=== PATIENT | male | born 1970 | race Asian ===

== ENCOUNTER → 2023-02-19 | Outpatient (CLI) | payer OTHER, SELFPAY ==
--- NOTE | 2023-02-19 17:55 | MRI_ITS ---
INDICATION: Bilateral leg numbness for 4 months EXAMINATION: MRI - MR Spine Lumbar W/O Contrast TECHNIQUE: Multiplanar and multisequence MR images of the lumbar spine. IV Contrast Dosage and Agent: None. COMPARISON: None. FINDINGS: VERTEBRAE: Vertebral body heights are preserved. No acute fracture or pathologic marrow replacement. VERTEBRAL ALIGNMENT: No spondylolisthesis. There is preservation of the normal lumbar lordosis. CORD: Normal position and signal intensity of the conus medullaris. L1/L2: Normal disc height and morphology. Normal spinal canal, lateral recesses and neuroforamina. L2/L3: Normal disc height and morphology. Normal spinal canal, lateral recesses and neuroforamina. L3/L4: Normal disc height and morphology. Normal spinal canal, lateral recesses and neuroforamina. L4/L5: Mild loss of normal disc space height with circumferential annular bulge in combination with posterior elements producing mild central and bilateral foraminal encroachment. L5/S1: Normal disc height and morphology. Normal spinal canal, lateral recesses and neuroforamina. SOFT TISSUES: Unremarkable. MRI/Spine Lumbar (Routine) IMPRESSION: Degenerative disc disease with lumbar stenosis at L4-5. Electronically Signed: Mekhi Fernandez MD at 20:01 EDT ,
== END | disposition home or self-care (01) ==
PROVIDERS: PCP Family Medicine; Referring Provider Orthopaedic Surgery; Visit Provider Orthopaedic Surgery
DX: M48.061 Spinal stenosis, lumbar region without neurogenic claudication (principal)
CPT/HCPCS: 72148

== ENCOUNTER 2024-04-14 21:29 | Emergency (ER) | payer OTHER, SELFPAY ==
[2024-04-14 21:30] VITALS: BP 182/99; PULSE 81; RESP 16; TEMP 36.8; O2SAT 98; BMI 25.0
--- NOTE | 2024-04-14 22:01 | ED.VIS.DYS ---
HPI History of Present Illness Chief Complaint: Asthma Narrative Narrative: 53-year-old male presenting with shortness of breath. Patient states it started yesterday. Patient has a history of asthma. Patient states he was already seen today at [facility] and was given steroids and breathing treatments. He had lab work and imaging performed. He states that he was sent home but he still feels like he is short of breath. He states he does not have chest pain. He has not had fever or chills. No cough. No nausea or vomiting. PE Risk Factors: Negative for Cancer, OCP + Smoking + > 35, Prior DVT or PE, Recent immobilization, Recent surgery or Recent travel [facility] Medical History Asthma Home Medications ?Medication ?Instructions ?Recorded ?Last Taken ?Type cetirizine 10 mg tablet ea PO 02/06/23 Unknown History diclofenac sodium 75 mg ea PO 02/06/23 Unknown History tablet,delayed release famotidine 40 mg tablet ea PO 02/06/23 Unknown History lansoprazole 30 mg capsule,delayed 30 mg PO 02/06/23 Unknown History release doxycycline hyclate 100 mg tablet 100 mg PO BID #13 tabs 04/14/24 Unknown Rx Allergy/AdvReac Type Severity Reaction Status Date / Time No Known Allergies Allergy Verified 04/14/24 21:31 Social History Smoking Status: Never smoker alcohol intake: never ROS ROS ED Constitutional Constitutional ED: Denies chills, fever(s) or sweats Eyes Eyes: Denies blurry vision or change in vision ENT ENT ED: Denies ear pain or sore throat Cardiovascular Cardiovascular: Denies chest pain, palpitations or racing heartbeat Respiratory/Chest Respiratory/Chest: Reports dyspnea; Denies cough or sputum Gastrointestinal Gastrointestinal: Denies abdominal pain, constipation, diarrhea, nausea or vomiting Genitourinary Genitourinary ED: Denies dysuria, hematuria or urinary frequency Musculoskeletal Musculoskeletal: Denies arthralgias, myalgias or neck pain Integumentary Denies abscess, Abrasions or rash Neurologic Neurologic: Denies headache(s), paresthesias or weakness Psychiatric Psychiatric: Denies anxiety, depression, suicidal ideation or suicidal thoughts Endocrine Endocrinology: Denies polydipsia or polyuria EXAM Physical Exam Const Vital Signs: 04/14/24 21:30 04/14/24 21:36 Temperature 98.2 F Temperature Source Temporal Pulse Rate 81 Respiratory Rate 16 Respiratory Effort Normal Blood Pressure 182/99 H Blood Pressure Mean 126 Pulse Ox 98 Oxygen Delivery Method Room Air General Appearance ED: Negative for pallor HEENT Reports normocephalic, head/scalp atraumatic and moist mucous membranes Eyes PERRL and EOMs intact bilaterally Neck no lymphadenopathy and supple Chest Wall inspection of chest normal and palpation of chest normal Resp normal respiratory effort and clear to auscultation bilaterally Auscultation: Negative for rales, rhonchi or wheezes Cardio regular rate and regular rhythm Narrative: Deferred Extremity normal to inspection and no pedal edema General Extremety ED: Negative for edema or tenderness General Extremity: Negative for edema Neuro oriented x3 and CN's II-XII intact bilaterally Sensorium / Orientation: alert Motor Exam: strength 5/5 throughout Psych mental status grossly normal Attitude: No agitated Skin no rashes or lesions noted and no wounds General Skin Exam: Negative for jaundice or pallor MDM MDM MDM Narrative Medical decision making narrative: Patient presenting with shortness of breath. He states he feels like it is asthma. He was already seen at [facility]. On examination his lungs are clear to auscultation bilaterally. Heart regular rate and rhythm without murmur. Temperature 98.2 and O2 sats 98% on room air. Patient requested breathing treatments. I reviewed his workup from [facility] his CBC showed a white count of 8.9, hemoglobin 13.4, platelets 343. Glucose was 225, sodium 139, potassium 4.0, chloride 104, CO2 24, BUN 17, creatinine 1.24. High-sensitivity troponin was 6. Per the ER notes they did not believe he presented with asthma symptoms either because they did not believe he was wheezing. For this reason they did a complete workup including a CTA and cardiac workup which was all normal. Patient was given an albuterol inhaler as it does not seem he has albuterol at home. He does have 2 steroid inhalers with him. He requests an antibiotic so he was started on doxycycline. Return precautions discussed. Impression: 1. Dyspnea Discharge Plan Triage Chief Complaint: Asthma ED Provider: Abdias Peña Dx/Rx/DC Orders Instructions: ED Asthma, Acute (Adult) Prescriptions: New doxycycline hyclate 100 mg tablet 100 mg PO BID Qty: 13 0RF No Action diclofenac sodium 75 mg tablet,delayed release (DR/EC) PO Patient Comments: take 1 tablet by mouth twice a day famotidine 40 mg tablet PO Patient Comments: take 1 tablet by mouth once daily cetirizine 10 mg tablet PO Patient Comments: take 1 tablet by mouth daily lansoprazole 30 mg capsule,delayed release(DR/EC) 30 mg PO Patient Comments: take 1 capsule by mouth twice a day Primary Care Provider: Juarez Mcmullen Referrals: Juarez Mcmullen MD [Primary Care Provider] - Print Language: Palauan Disposition Disposition: Home, Self Care Discharge Date/Time: 04/14/24 23:48
[2024-04-14 22:06] VITALS: PULSE 88; RESP 20
[2024-04-14] MEDS: Ipratropium/Albuterol Sulfate 3 ML AMPUL.NEB INHALATION (22:06)
[2024-04-14] MEDS: Albuterol 2.5 MG/3 ML VIAL.NEB. INHALATION (22:07)
--- NOTE | 2024-04-14 22:25 | CPS ---
x1 Albuterol given to pt. in ER as well
[2024-04-14 23:09] VITALS: O2SAT 95
[2024-04-14] MEDS: Doxycycline 100 MG CAPSULE PO (23:36)
[2024-04-14] MEDS: Albuterol Sulfate 8 gm Inhaler (60 puffs) 2 PUFF INHALATION (23:47)
== END 2024-04-14 23:48 | disposition home or self-care (01) ==
PROVIDERS: Emergency Provider Student in an Organized Health Care Education/Training Program; PCP Family Medicine; Visit Provider Student in an Organized Health Care Education/Training Program
DX: R06.00 Dyspnea, unspecified (principal); J45.909 Unspecified asthma, uncomplicated; Z79.899 Other long term (current) drug therapy
CPT/HCPCS: 94640; 99282

== ENCOUNTER → 2024-06-28 | Outpatient (CLI) | payer OTHER, SELFPAY ==
[2024-06-28 10:34] LABS: PSA,Total - Annual Screen 1.07 ng/mL (0.00-4.00)
== END | disposition home or self-care (01) ==
LOC: LAB 09:17
PROVIDERS: PCP Family Medicine; Referring Provider Urology; Visit Provider Urology
DX: Z12.5 Encounter for screening for malignant neoplasm of prostate (principal)
CPT/HCPCS: 36415; 84153; G0103

== ENCOUNTER 2024-08-13 11:46 | Emergency (ER) | payer OTHER, SELFPAY ==
[2024-08-13 11:46] VITALS: BP 139/91; PULSE 94; RESP 14; TEMP 36.6; O2SAT 95; BMI 22.5
[2024-08-13 12:09] VITALS: O2SAT 93
--- NOTE | 2024-08-13 13:09 | ED.VIS.DYS ---
HPI History of Present Illness Chief Complaint: Shortness of Breath Onset/Context/Timing Onset: Yesterday Context: gradual Timing: Continuous Quality: Positive for Wheezing Worsened by: Nothing Relieved by: Nothing Associated Symptoms cough, clear sputum and white sputum; Negative for rhinorrhea, post nasal drip, ear pain, fever, chest pain, sore throat, chills, sweats, yellow sputum or green sputum Chest Pain: Positive for None Narrative Narrative: Patient presents with shortness of breath that has been getting worse since yesterday. Patient states he has a history of asthma. Patient states that he does not have any asthma medications at home. Patient states his asthma has been getting worse. Patient denies any fevers or chills. Patient admits to a cough. Patient states he is coughing up some clear and white sputum. Patient denies any fevers or chills. Patient denies any chest pain. Patient denies any nausea or vomiting. [facility] Medical History Asthma Home Medications ?Medication ?Instructions ?Recorded ?Last Taken ?Type cetirizine 10 mg tablet ea PO 02/06/23 Unknown History diclofenac sodium 75 mg ea PO 02/06/23 Unknown History tablet,delayed release famotidine 40 mg tablet ea PO 02/06/23 Unknown History lansoprazole 30 mg capsule,delayed 30 mg PO 02/06/23 Unknown History release doxycycline hyclate 100 mg tablet 100 mg PO BID #13 tabs 04/14/24 Unknown Rx albuterol sulfate 90 mcg/actuation 1 - 2 puff inhalation Q4H PRN PRN 08/13/24 Unknown Rx aerosol inhaler (Ventolin HFA) Wheezing ##1 prednisone 20 mg tablet 60 mg (3 x 20 mg) PO DAILY #15 08/13/24 Unknown Rx TABLETS Allergy/AdvReac Type Severity Reaction Status Date / Time No Known Allergies Allergy Verified 08/13/24 11:47 Surgical History no surgical history no surgical history Social History Smoking Status: Never smoker alcohol intake: never ROS ROS ED Constitutional Constitutional ED: Denies chills or fever(s) Eyes Eyes: Denies blurry vision or change in vision ENT ENT ED: Denies rhinorrhea or sore throat Cardiovascular Cardiovascular: Denies chest pain or palpitations Respiratory/Chest Respiratory/Chest: Reports cough and dyspnea Gastrointestinal Gastrointestinal: Denies nausea or vomiting Genitourinary Genitourinary ED: Denies dysuria or hematuria Musculoskeletal Musculoskeletal: Denies back pain or neck pain Integumentary Denies abscess or rash Neurologic Neurologic: Denies headache(s) or weakness Allergic/Immunologic Allergic/Immunologic ED: Denies mouth swelling or urticaria EXAM Physical Exam Const Vital Signs: 08/13/24 11:46 08/13/24 12:09 08/13/24 13:23 Temperature 97.8 F Temperature Source Temporal Pulse Rate 94 114 H Respiratory Rate 14 30 H Respiratory Effort Normal Respiratory Pattern Tachypnea Blood Pressure 139/91 H Blood Pressure Mean 107 Pulse Ox 95 Oxygen Delivery Method Room Air Room Air 08/13/24 13:46 08/13/24 15:00 Temperature Temperature Source Pulse Rate 93 92 Respiratory Rate 16 16 Respiratory Effort Respiratory Pattern Blood Pressure 168/62 H 160/64 H Blood Pressure Mean 97 96 Pulse Ox 95 94 Oxygen Delivery Method Positive well nourished and well developed General Appearance ED: well developed and NAD HEENT Reports normocephalic and moist mucous membranes atraumatic Neck full ROM, supple and no JVD Resp normal respiratory effort Auscultation: wheezes expiratory wheezes and throughout Cardio regular rate and regular rhythm GI soft to palpation, non-tender and non-distended Extremity normal to inspection, full ROM, no calf tenderness and no pedal edema Neuro oriented x3, CN's II-XII intact bilaterally, moves all extremities, no focal motor deficits and no sensory deficits noted Sensorium / Orientation: awake and alert MDM MDM MDM Narrative Medical decision making narrative: Differential diagnosis includes asthma exacerbation and reactive airway disease. Lab Data Lab results narrative: COVID-19 PCR was reviewed and was negative. Influenza PCR was reviewed and was negative for influenza A and influenza B. RSV PCR was reviewed and was negative. Radiography Chest X-Ray - ED: 2 View, Read by ED Physician, Read by Radiologist and No Acute Disease Diagnostic Testing: Clinical Impression(s) from Imaging Studies Chest X-Ray 08/13/24 15:10 IMPRESSION: Mild CHF Electronically Signed: Omari White MD at 15:59 EDT Reading Location ID and State: [facility] / [place] , Service support , [place] and lateral chest x-ray was obtained. There are 2 views. On my independent interpretation, lung arias showed mild vascular congestion. There is normal cardiac silhouette. Bony thorax is normal. There is no acute process noted. Radiologist also interpreted the x-ray and agrees. Treatment and Re-Evaluation :: Patient was given a DuoNeb aerosol here. Patient had minimal relief with this. Patient was given a repeat albuterol aerosol. Because of patient's persistent symptoms, chest x-ray was obtained to assess for pneumonia. COVID-19, RSV, and influenza PCR was obtained to assess for viral illness. These were reviewed. Chest x-ray was read as mild vascular congestion, however, patient does not have any symptoms consistent with congestive heart failure. Patient was given a prescription for an albuterol inhaler and a short course of prednisone. Patient was instructed to follow-up with his primary care physician. Patient was instructed to follow-up in 5 to 7 days. Patient understood and was agreeable with the plan. All questions were answered. Discharge Plan Triage Chief Complaint: Shortness of Breath ED Provider: Sony Mcfadden Dx/Rx/DC Orders Clinical Impression: Asthma exacerbation, Dyspnea Instructions: ED Asthma, Acute (Adult) Prescriptions: New albuterol sulfate [Ventolin HFA] 90 mcg/actuation HFA aerosol inhaler 1 - 2 puff inhalation Q4H PRN PRN (Reason: Wheezing) Qty: 1 0RF prednisone 20 mg tablet 60 mg PO DAILY Qty: 15 0RF No Action diclofenac sodium 75 mg tablet,delayed release (DR/EC) PO Patient Comments: take 1 tablet by mouth twice a day famotidine 40 mg tablet PO Patient Comments: take 1 tablet by mouth once daily cetirizine 10 mg tablet PO Patient Comments: take 1 tablet by mouth daily lansoprazole 30 mg capsule,delayed release(DR/EC) 30 mg PO Patient Comments: take 1 capsule by mouth twice a day doxycycline hyclate 100 mg tablet 100 mg PO BID Qty: 13 0RF Primary Care Provider: Juarez Mcmullen Referrals: Juarez Mcmullen MD [Primary Care Provider] - 5-7 Days Print Language: Burundian Disposition Disposition: Home, Self Care
[2024-08-13 13:23] VITALS: PULSE 114; RESP 30
[2024-08-13] MEDS: Ipratropium/Albuterol Sulfate 3 ML AMPUL.NEB INHALATION (13:23)
[2024-08-13 13:46] VITALS: BP 168/62; PULSE 93; RESP 16; O2SAT 95
[2024-08-13] MEDS: Albuterol 2.5 MG/3 ML VIAL.NEB. INHALATION (14:56)
[2024-08-13 15:00] VITALS: BP 160/64; PULSE 92; RESP 16; O2SAT 94
--- NOTE | 2024-08-13 15:10 | RAD_ITS ---
STUDY: X-RAY CHEST REASON FOR EXAM: Male, 54 years old. Cough TECHNIQUE: PA and lateral views of the chest. COMPARISON: July 09, 2013 FINDINGS: No visualized consolidation. Mild interstitial/groundglass edema and pulmonary vascular congestion. Trace bilateral pleural effusions. There are interstitial fibrotic changes of the lungs. There is no demonstrated pleural abnormality. There is mild cardiac enlargement. Normal mediastinum and renetta. There is prominence of the pulmonary hilar arteries and peripheral pulmonary arteries, consistent with congestive heart failure (CHF). There is atherosclerotic calcification of the aortic arch with tortuosity. There are diffuse degenerative changes of the visualized thoracic spine. Normal visualized ribs, clavicles, and shoulders. There is no demonstrated abnormality of the visualized soft tissue structures of the upper abdomen. RAD/Chest PA and Lateral IMPRESSION: Mild CHF Electronically Signed: Omari White MD at 15:59 EDT ,
--- NOTE | 2024-08-13 16:25 | ED.RN ---
Pt upset he did not receive antibiotics, attempted to educate on need for antibiotics with infection only. Pt states he does not want inhalter. Pt left prior to receiving prednisone.
[2024-08-13] MEDS: predniSONE 20 MG Tablet 60 MG PO (17:16)
--- NOTE | 2024-08-13 17:42 | ED.RN ---
Pt returned for oral prednisone per phone call from this RN. Meds given without incident.
== END 2024-08-13 16:33 | disposition home or self-care (01) ==
PROVIDERS: Emergency Provider Emergency Medicine; PCP Family Medicine; Visit Provider Emergency Medicine
DX: J45.901 Unspecified asthma with (acute) exacerbation (principal)
CPT/HCPCS: 71046; 87631; 94640; 99282

== ENCOUNTER 2025-01-10 08:54 | Outpatient (CLI) | payer OTHER, SELFPAY ==
--- NOTE | 2025-01-10 17:45 | MRI_ITS ---
PROCEDURE: MRI lumbar spine without IV contrast REASON FOR EXAM: Pain, numbness TECHNIQUE: Lumbar spine MRI without intravenous gadolinium-based contrast. COMPARISON: 02/19/2023 FINDINGS: Vertebral body heights are within normal limits. Negative for fracture or marrow replacement. Degenerative grade 1 anterolisthesis of L4-5. No significant scoliosis. Conus medullaris is intact and terminates at L1. 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 Mildly complex hyperintense T2 lesion in the left kidney measuring up to 2 cm with a thin internal septation. L1-2: No focal disc abnormality, spinal stenosis or foraminal narrowing. L2-3: Mild congenital spinal stenosis. No significant disc abnormality or foraminal narrowing. L3-4: No focal disc abnormality. Mild bilateral facet arthrosis and ligamentum flavum hypertrophy. Moderate circumferential spinal stenosis. Moderate bilateral foraminal narrowing. L4-5: Grade 1 anterolisthesis with uncovering of the posterior disc. Superimposed posterior disc bulge. Severe bilateral facet arthrosis and ligamentum flavum hypertrophy. Severe spinal stenosis width narrowing of the thecal sac measuring 4 mm in AP dimension. Mild bilateral foraminal narrowing. L5-S1: No focal disc abnormality. Mild bilateral facet arthrosis. Congenital mild/moderate spinal stenosis. MRI/Spine Lumbar (Routine) IMPRESSION: 1. Acquired and congenital multilevel spinal stenosis as above, greatest at L4- 5 categorized as severe. 2. Degenerative grade 1 anterolisthesis of L4-5. 3. Hyperintense T2 lesion in the left kidney. Recommend further evaluation wit h contrast-enhanced MRI. Reading Location: [facility]
== END 2025-01-10 23:59 | disposition home or self-care (01) ==
PROVIDERS: PCP Family Medicine; Referring Provider Orthopaedic Surgery Orthopaedic Surgery of the Spine; Visit Provider Orthopaedic Surgery Orthopaedic Surgery of the Spine
DX: M43.10 Spondylolisthesis, site unspecified (principal); M48.061 Spinal stenosis, lumbar region without neurogenic claudication
CPT/HCPCS: 72148

== ENCOUNTER 2025-03-01 16:33 | Inpatient (IN) | payer OTHER, SELFPAY ==
--- NOTE | 2025-02-24 06:58 | EKG12_ITS ---
Test Reason : PRE OP Blood Pressure : */* mmHG Vent. Rate : 69 BPM Atrial Rate : 69 BPM P-R Int : 174 ms QRS Dur : 74 ms QT Int : 416 ms P-R-T Axes : 43 24 51 degrees QTcB Int : 445 ms Normal sinus rhythm Normal ECG Confirmed by KASANDRA DONAHUE, GARCÍA ([id number]), make up editor GAB RAY ([id number]) on 02/25/2025 7:00:49 AM Referred By: Dannie Bahena Confirmed By: GARCÍA SLAUGHTER MD
[2025-02-24 07:22] LABS: Absolute Lymphocyte Count 2.86 X10^3/uL (0.83-4.51); Absolute Neutrophil Count 3.1 X10^3/uL (2.0-7.7); Basophil# 0.13 X10^3/uL; Basophil% 1.1 % (0-1); Eosinophil# 5.34 X10^3/uL; Eosinophils% 43.5 % (0-5); Hematocrit 43.9 % (40-54); Hemoglobin 14.4 g/dL (13.0-16.5); Lymphocyte # 2.86 X10^3/ul (0.83-4.51); Lymphocyte % 23.3 % (19-41); Mean Corp Hgb Conc 32.8 g/dL (32-36); Mean Corpuscular Hgb 25.4 pg (27.0-32.0); Mean Corpuscular Volume 77.4 fL (80-94); Mean Platelet Vol. 9.4 fl (6.2-12.0); Monocyte# 0.79 X10^3/uL; Monocyte% 6.4 % (0-10); NRBC Flagged by Analyzer 0 % (0-5); Neutrophil # 3.13 X10^3/uL (2.7-7.7); Neutrophil % 25.5 % (47-70); POSITIVE DIFFERENTIAL YES; Platelet Count 298 K/mm3 (150-450); RBC Distribution Width CV 13.2 % (11.6-14.6); RBC Distribution Width SD 36.8 fl (35.1-43.9); Red Blood Count 5.67 M/mm3 (4.6-6.2); White Blood Count 12.3 K/mm3 (4.4-11.0)
[2025-02-24 07:39] LABS: Differential Comment SCANNED; Differential Indicated SCAN CRITERIA MET
[2025-02-24 07:40] LABS: Pathologist Review May foll
[2025-02-24 08:24] LABS: Magnesium 2.1 mg/dL (1.5-2.2)
[2025-02-24 08:45] LABS: Anion Gap 12 (5-15); BUN 18 mg/dL (4-19); BUN/Creat Ratio 17.2 RATIO (10-20); Calcium,Total 9.1 mg/dL (7.6-11.0); Carbon Dioxide 20.8 mmol/L (21.0-32.0); Chloride 106 mmol/L (98-108); Creatinine, Serum 1.06 mg/dL (0.70-1.20); EST Glomerular Filtration Rate 84 (>60); Glucose 95 mg/dL (70-99); HIV Nonreactive (Nonreactive); Hepatitis B Surface Antibody REAC; Hepatitis C Antibody Nonreactive (Nonreactive); Potassium 4.1 mmol/L (3.3-5.1); Sodium Level 138 mmol/L (133-145)
[2025-02-25 06:35] LABS: Hepatitis A AB, Total Positive (Negative)
[2025-03-01] VITALS (19 sets, daily range): BP systolic 126–151; BP diastolic 72–112; PULSE 73–97; RESP 10–18; TEMP 35.7–36.5; O2SAT 84–100; BMI 22.6; BMI 23.8
[2025-03-01] MEDS: 0.9% Normal Saline (1000mL) 1,000 ML 15 ML IV (09:56)
[2025-03-01] MEDS: Acetaminophen 500 MG Tablet 1000 MG PO ×2 (09:56→22:10)
[2025-03-01] MEDS: Magnesium 1 GM over 15 mins IV (09:56)
--- NOTE | 2025-03-01 10:00 | RAD_ITS ---
PROCEDURE: LUMBAR SPINE 2 OR 3 VIEWS 03/01/2025 REASON FOR EXAM: 360 LUMBAR SPINE L4-5 TECHNIQUE: Intraoperative fluoroscopy with 20 fluoroscopic spot views FINDINGS: Fluoroscopy time 78.7 seconds Total dose 24.20 mGy Spot views show intervertebral disc replacement L4-5 with lateral fixation screw and bilateral posterior fusion. There appears to be improvement in the previous mild anterolisthesis although not well visualized. Hardware appears intact and anatomic. RAD/Lumbar Spine 2 or 3 Views IMPRESSION: Intraoperative fluoroscopy for L4-5 intervertebral disc placement and posterior fusion as above. Reading Location: [id number]
--- NOTE | 2025-03-01 10:13 | PRE.ANES_ITS ---
ASA Classification* ASA Classification ASA Classification: 2 Assessment & Plan Anesthesia* Anesthesia Assessment Anesthesia Assessment: Discussed sedation and/or anesthesia options, risks, benefits, and alternatives with patient/parents/legal guardian/POA. Questions invited. The patient/parents/legal guardian/POA seems to understand and agrees to proceed with anesthesia plan. Reviewed the physical assessment, medical history, allergy history and patient home medications list prior to surgery/procedure/anesthetic and documented any changes. Performed airway and anesthesia risk assessments. Anesthesia Type Anesthesia Type: General History Source History Obtained from:: Patient and Chart Anesthesia Focused Assessment* Temperature: 97.5 F Pulse Rate: 73 Blood Pressure: 131/72 Respiratory Rate: 16 Pulse Ox: 98 Oxygen Delivery Method: Room Air Airway Assessment Mouth opens: >3 cm Mallampati Score: I Teeth Condition: Intact Neck Range of motion (ROM): Full ROM Focused Labs Anesthesia Preop lab: CBC WBC 12.3 K/mm3 (4.4-11.0) H 02/24/25 06:49 5 RBC 5.67 M/mm3 (4.6-6.2) 02/24/25 06:49 02/24/25 Hgb 14.4 g/dL (13.0-16.5) 02/24/25 06:49 02/24/25 Hct 43.9 % (40-54) 02/24/25 06:49 02/24/25 Plt Count 298 K/mm3 (150-450) 02/24/25 06:49 02/24/25 CHEMISTRY Potassium 4.1 mmol/L (3.3-5.1) 02/24/25 06:49 02/24/25 Sodium 138 mmol/L (133-145) 02/24/25 06:49 02/24/25 Magnesium 2.1 mg/dL (1.5-2.2) 02/24/25 06:49 02/24/25 BUN 18 mg/dL (4-19) 02/24/25 06:49 02/24/25 Creatinine 1.06 mg/dL (0.70-1.20) 02/24/25 06:49 02/24/25 Glucose 95 mg/dL (70-99) 02/24/25 06:49 02/24/25 COAG Pre-Assessment Diagnosis/Proposed Procedure Planned Operative Procedure(s): 360 LUMBAR FUSION L4-5 Anesthesia History Anesthesia [place]: Anesthesia History - [place] Hx Hospitalization No 02/23/25 16:26 Any Problems With Anesthesia No 02/23/25 16:26 Cholinesterase deficiency No 02/23/25 16:26 You/Your Family Experience No 02/23/25 16:26 fever (hyperthermia) with Relationship Recent Exposure to Contagious No 03/01/25 09:51 Disease Does patient have nerve No 02/23/25 16:26 stimulator Patient instructed to have device shut off --Does patient have Pacemaker No 03/01/25 09:51 or ICD? When Was Last Pacemaker Check QUESTION #4 FULL TEXT: You/Your Family Experience fever (hyperthermia) with Anesthesia Last Oral Intake Last Oral intake: Last Oral Intake NPO since 07:30 03/01/25 09:51 Meds taken in AM with sips of No 03/01/25 09:51 water? Meds patient instructed to take am of surgery Any additional information?: Yes NPO since: 07:30 (Patient had bread at 7:30 AM.) Meds taken in AM with sips of water?: No PONV PONV - [place]: PONV - [place] Female No 02/23/25 16:26 HX of Motion Sickness No 02/23/25 16:26 HX of N/V After Surgery No 02/23/25 16:26 Non-Smoker Yes 02/23/25 16:26 Duration of Surgery greater Yes 02/23/25 16:26 than 60 minutes Number of Risk Factors 2 02/23/25 16:26 PONV Score Moderate Risk 02/23/25 16:26 Height & Weight Height & Weight: Anesthesia: Height & Weight Height 5 ft 5 in 03/01/25 09:51 Weight: 61.7 kg 03/01/25 09:51 Body Mass Index (BMI) 22.6 03/01/25 09:51 Respiratory Assessment Respiratory Assessment - [employer] [place]: Respiratory Tract Infection Hx - [employer] [place] Hx Respiratory Tract Infection No 02/23/25 16:26 STOP Sleep Apnea STOP Sleep Apnea - [place]: STOP Sleep Apnea - [employer] [place] Hx Hypertension No 02/23/25 16:26 Hx Sleep Apnea No 02/23/25 16:26 CPAP BIPAP Do you snore loudly (louder No 02/23/25 16:26 than talking or can be heard Do you often feel tired/ No 02/23/25 16:26 fatigued/ sleepy during daytime? Has anyone observed you stop No 02/23/25 16:26 breathing during sleep? STOP Results Negative 02/23/25 16:26 QUESTION #5 FULL TEXT : Do you snore loudly (louder than talking or can be heard through closed doors)? Tobacco Use History Tobacco Use History - [place]: Tobacco Use History - [place] Tobacco Use Smoking Status Never smoker 02/23/25 16:26 Hx Tobacco Use No 02/23/25 16:26 Years Smoking Packs Smoked per Day Smoking Cessation Date was within the last 15 years Hx Smoking Cessation Date Hx Smoking Cessation Counseling Hematologic Medial History Hematologic Hx - [place]: Hematologic Medical Hx - service trainer Hx of Blood Transfusion No 02/23/25 16:26 Hx of Transfusion in last 3 No 02/23/25 16:26 Months Date of Last Transfusion (if within last 3 months) Ever experience any problems No 02/23/25 16:26 with transfusion(s)? Specify any problems Hx of Preganancy in last 3 N/A 02/23/25 16:26 Months Nurse Filling Out Transfusion DSCHRIBER 02/23/25 16:26 & Questions: Date: 02/23/25 02/23/25 16:26 Time: 16:27 02/23/25 16:26 Patient unable to answer at this time (ie. confused, unrespo /Reproduction History /Reproductive History - [place]: /Reproductive Hx- [place] Hx Now No 02/23/25 16:26 Gestational Age (in weeks): EDC: Hx Hx Para Hx Section SAB No 02/23/25 16:26 Active Medications Active Medications: Current Medications Generic Name Dose Route Start Last Admin Trade Name Freq PRN Reason Stop Dose Admin Acetaminophen 1,000 mg 03/01/25 11:00 03/01/25 09:56 Acetaminophen 500 Mg Tablet PO 03/01/25 11:01 1,000 mg X1 ONE Administration Cefazolin Sodium 2 gm/ N/A 20 mls @ 400 mls/hr 03/01/25 11:00 IV 03/01/25 11:02 PREOP ONE Tranexamic Acid 1,000 mg/ 110 mls @ 440 mls/hr 03/01/25 11:00 Sodium Chloride IV 03/01/25 11:14 X1 ONE Tranexamic Acid 1,000 mg/ 110 mls @ 440 mls/hr 03/01/25 11:00 Sodium Chloride IV 03/01/25 11:14 X1 ONE Magnesium Sulfate 1 gm/ 102 mls @ 408 mls/hr 03/01/25 11:00 03/01/25 09:56 Dextrose IV 03/01/25 11:14 408 mls/hr X1 ONE Administration Sodium Chloride 1,000 mls @ 15 mls/hr 03/01/25 09:10 03/01/25 09:56 IV 15 mls/hr .Q48H MARK Administration Insulin Human Lispro 1 - 6 unit 03/01/25 11:00 Insulin Lispro 100 Unit/Ml Insuln.Pen SC 03/01/25 18:00 Q4H PRN PRN BG>/= 180, SEE PROTOCOL Protocol PFSH Medical History Back pain History of ulceration Gastric reflux Non-smoker Asthma Home Medications ?Medication ?Instructions ?Recorded ?Last Taken ?Type cetirizine 10 mg tablet 10 mg PO DAILY ALLERGY' 01/16 02/06 Unknown History famotidine 40 mg tablet 40 mg PO QHS GERD 02/06/23 U nknown History fexofenadine 180 mg tablet 180 mg PO DAILY ALLERGY 08/11 Unknown History montelukast 10 mg tablet 10 mg PO DAILY ALLERGY 02/23 Unknown History Allergy/AdvReac Type Severity Reaction Status Date / Time No Known Allergies Allergy Verified 03/01/25 09:27 Social History Smoking Status: Never smoker alcohol intake: never Review of Systems (Anesthesia) ROS Narrative System reviewed and no additional complaints, except as documented.
--- NOTE | 2025-03-01 10:14 | PCM.HP.BLA ---
History and Physical Date of Admission: 03/01/25 MR#: [id number] Acct: [id number] Name: MARGARETH LI) Rep #: [id number] : 1970 Provider: Dr. Dannie Bahena MD Age/Sex: 54/M Location: [facility] [place].[facility] Status: Signed Intake Vital Signs 12/15/2514:20 01/21/2516:12 Height 5 ft 5 in 5 ft 5 in Weight: 136 lb BMI 22.6 Intake Visit Reasons: LUMBAR SPINE Chief Complaint: lumbar spine Is patient in pain?: Yes Allergies No Known Allergies Allergy (Verified 02/22/25 15:52) Medications ?Medication ?Instructions ?Recorded ?Confirmed ?Type cetirizine 10 mg tablet ea PO 02/06/23 02/22/25 History diclofenac sodium 75 mg ea PO 02/06/23 02/22/25 History tablet,delayed release famotidine 40 mg tablet ea PO 02/06/23 02/22/25 History lansoprazole 30 mg capsule,delayed 30 mg PO 02/06/23 02/22/25 History release doxycycline hyclate 100 mg tablet 100 mg PO BID #13 tabs 04/14/24 02/22/25 Rx albuterol sulfate 90 mcg/actuation 1 - 2 puff inhalation Q4H PRN PRN 08/13/24 02/22/25 Rx aerosol inhaler (Ventolin HFA) Wheezing ##1 prednisone 20 mg tablet 60 mg (3 x 20 mg) PO DAILY #15 08/13/24 02/22/25 Rx TABLETS PFSH Medical History Asthma Social History Smoking Status: Never smoker alcohol intake: never HPI LUMBAR SPINE Details: This documentation accurately reflects the service provided and the decisions made by me, Dr. Dannie Bahena MD 02/22/25 [id number]. Part of today?s visit was documented by [ ], acting as scribe. PANCHO LI (JACK) is a 54 year old M here today for his preop appointment. He is scheduled for a 360 fusion. Patient notes that he has leg numbness He denies any pain medications. 12/15/24: PANCHO LI is a 54 year old M here today for lumbar spine. Pt. advises he is experiencing pain and numbness in his bilateral feet and legs after standing for about 5-10 mins. Says that both legs are equal. He was seen by Dr. Marlow in 2022 who referred him to pain management for steroid injections. He only had one injection one year ago. Says that the injection helped his pain for 2 months. He walks 5 minutes and his pain increases. He states they were only helpful for a short time before the pain and numbness returns. His job requires him to long periods of time. He has to sit down frequently. He has tried physical therapy without much relief and also has had epidural steroid injections with only temporary relief. He continues to decline in function. He cannot stand or walk for long periods of time. Ortho Exam General General: Yes no acute distress Neurologic: Yes alert and Yes oriented x3 Psychologic: Yes reasonable and appropriate Spine SPINE TESTING CERVICAL THORACIC LUMBAR Musculoskeletal Strength 0=absent - 5=normal Details: Neurological exam of the lower extremities shows 5x5 power. Normal sensations across all dermatomes. No hyperreflexia. No midline or paraspinal tenderness. Coding Level of Care Code Off vis,est,level 4 Diagnoses Degenerative spondylolisthesis M43.10 Spinal stenosis at L4-L5 level M48.061 Time Spent (min) 35 Assessment and Plan Assessment and Plan (1) Degenerative spondylolisthesis: Status: Acute (2) Spinal stenosis at L4-L5 level: Status: Acute Plan Reviewed previous x-rays and recently done MRI. Xrays show a anterolisthesis of L4 on L5 with instability on flexion/extension views. MRI shows severe stenosis at L4-5. Again explained imaging findings in detail. Patient has had prolonged symptoms for more than 2 years now and now his neurogenic claudication has affected his overall function and quality of life significantly. He is not able to stand and walk for long distances and this is affecting his ability to do the work that he does. Surgical treatment options were discussed. L4-5 anterior posterior fusion with indirect decompression was discussed in detail. All risk benefits and alternatives were discussed. Explained the surgical procedure with the patient. He will have pain after surgery but explained that every day the pain will get better each day. He should avoid lifting anything heavy, bending or twisting. Explained that he will not be able to drive for the first 2-3 weeks as he will be on medications. Once the pain is better and he is off the pain medications he can get back to driving. If he is able to go on light duty at work he can return to work once he is back to driving and we can write him a note with his restrictions. All risk benefits and alternatives were discussed. Risks include but are not limited to infection, bleeding, injury to nerves and vessels, hematoma formation, need for further surgery, vascular injury, visceral injury, ileus, pseudoarthrosis, hardware failure, adjacent segment degeneration, DVT, pulm embolism, pneumonia, atelectasis, cardiopulmonary event, persistent pain, persistent numbness and weakness, foot drop. Follow up after surgery for post-op appointment or sooner if pain, swelling, numbness or associated symptoms, or concerns develop. All questions answered. Patient in agreement of plan.
[2025-03-01 10:18] LABS: Bedside Glucose 65 mg/dL (74-106)
[2025-03-01] MEDS: Ipratropium/Albuterol Sulfate 3 ML AMPUL.NEB INHALATION (11:07)
[2025-03-01] MEDS: TRANEXAMIC ACID 1,000 MG in 0.9% Normal Saline (100mL Bag) 100 ML 440 MG IV ×2 (13:36→16:08)
[2025-03-01] MEDS: Cefazolin 2 GM in Syringe 10 ML IV ×2 (13:40→22:11)
[2025-03-01] MEDS: Ropivacaine 0.5% 30 ML Vial (16:21)
--- NOTE | 2025-03-01 16:37 | PCM.OPRPT ---
Procedures Musculoskeletal 20xxx-29xxx: Other Procedure See Report Operative Report (Standard) Operative Information Date of Procedure: 03/01/25 Pre-Operative Diagnosis: L4-5 spondylolisthesis, stenosis with neurogenic claudication Post-Operative Diagnosis: Same Surgery/Procedure Performed: L4-5 oblique lumbar interbody fusion manager community outreach: Yes Sr. Strategic Sourcing Manager: Didi Gottlieb Tasks completed by therapeutic recreation assistant: Closing, Removing tissue, Hemostasis: Electrocautery and Retracting Type of Anesthesia: General RN Documented Start/Stop Times: Operation Date: 03/01/25 11:00 Case Time Into Pre-Op 03/01/25 09:06 Out of Pre-Op 03/01/25 13:16 Anesthesia Start 03/01/25 13:25 Into Room 03/01/25 13:25 Procedure Start 03/01/25 13:54 Procedure End 03/01/25 16:23 Procedure Start Time: 13:54 Procedure Stop Time: 16:23 Select all DRAINS/GRAFTS/IMPLANTS that apply: Graft Graft details: Allograft cancellous bone chips, autologous bone marrow aspirate and Implanted device Implanted device details: DePuy [place] lateral lumbar interbody cage?peek Estimated Blood Loss: 50 cc Specimen collected: No Description of surgery: Preoperative diagnosis: L4-5 spondylolisthesis, stenosis with neurogenic claudication Postoperative diagnosis: Same Name of procedures L4-5 oblique lumbar interbody fusion (OLIF), minimally invasive left sided approach, lateral decubitus: ? L4-5 anterolateral spinal fusion 59747 ? L4-5 insertion of cage [id number] ? Bone graft aspirate left iliac crest separate incision ? Allograft cancellous chips Attending Surgeon: Dr. Dannie Bahena Estimated blood loss: 50 mL Anesthesia: General Complications: None Indications: Patient is a 54-year-old pleasant gentleman who has had a long history of low back pain and bilateral lower extremity numbness and difficulty walking distances. Xrays & MRI revealed L4-5 spondylolisthesis with severe stenosis. After undergoing a prolonged period of nonoperative treatment, the patient elected to undergo surgical decompression & fusion. All surgical options were discussed with the patient including anterior and posterior approaches. All risks and benefits associated with the procedure were explained to the patient. The risks include but are not limited to infection, bleeding, injury to nerves and vessels including major vessels like IVC and aorta, persistent paresthesia, persistent pain, dural tear, need for further procedures, adjacent segment degeneration, pseudoarthrosis, hardware failure, retrograde ejaculation, paralytic ileus, etc. Procedure: The patient was identified in the preoperative holding suite using Unique patient identifiers. Skin was marked, consent was reviewed, and all questions were answered. The patient was then brought back to the operative room. A surgical timeout was performed to make sure correct procedure was being done on the correct patient and all operative room staff were on the same page. General endotracheal anesthesia was then given to the patient. Murphy catheter was inserted. The patient was then carefully positioned in right lateral decubitus position with the left side up on a regular OR table. Axillary roll was placed and all bony prominences were well- padded. Hip positioners were placed in the posterior buttocks and anterior sternal area. The surgical area was prepped and draped in usual fashion. Preoperative antibiotic was injected IV as preoperative antibiotic. A final timeout was then again done just before starting the procedure. A 2 inch incision oblique was taken in the left lower quadrant of the abdomen 2 fingerbreadths away from the iliac crest and the lower ribs. Sharp dissection with Bovie was carried out up to the fascia covering the external oblique. The external oblique, internal oblique and transversus abdominis muscles were split along the muscle fibers and retroperitoneal space was entered. Sponge sticks were utilized to move the bowel and peritoneum [id number]-way and psoas muscle was exposed staying within the retroperitoneal plane. Litographsframe retractor system was positioned and the retractor blade was applied onto the psoas. The interval between psoas and midline structures was developed and appropriate retractors were placed. Once adequate interval was cleared, a disc space was identified and a marker x-ray was taken. This identified the L4-5 disc level. Annulotomy was done with a long handled knife. Pituitary was used to remove disc material. Curettes were used to prepare the endplates. Disc space spreaders were utilized to distract and increase the disc height. Near complete discectomy was performed. Smaller disc distractors were also used to bluntly perform a contralateral annulotomy. Trials of serially increasing sizes were used. A Jamshidi needle was used to aspirate bone marrow from the left anterior iliac crest through a separate incision and this aspirate was mixed with the allograft bone chips. A Depuy [place] cage of size of the 18 x 45 x 14 mm with 15 degrees lordosis was packed with corticocancellous allograft bone chips mixed with bone marrow aspirate. This was inserted into the L4-5 disc space. AP and lateral C-arm pictures were taken to confirm good position of the cage. Some bone chips were also packed around the cages. Screw with washer was placed into the lower L4 body with a washer partially covering the cage at L4-5. Hemostasis was confirmed. The retractor blades were removed. Closure was done in layers with a continuous strand of # 1 Vicryl in all muscle layers. 2-0 Vicryl was used for subcutaneous tissue and 4-0 for Monocryl for the skin. Steri-Strips were applied and 4 x 4 gauze and Tegaderm were applied. Social Work Faculty Member Didi Gottlieb PA-C. My physician apartment assistant manager was a vital part of this case. They were important in appropriate retraction during the case, and protection of soft tissues during the procedure. Their intimate knowledge of the case and my steps aided in safe and expedient completion of the procedure as well as appropriate position of the patient during the surgery. They were also vital in assisting with closure under my direct supervision. Surgical Findings: See operative note Complications Complications: No
--- NOTE | 2025-03-01 16:41 | OP.PCM_ITS ---
Procedures Musculoskeletal 20xxx-29xxx: Other Procedure See Report Operative Report (Standard) Operative Information Date of Procedure: 03/01/25 Pre-Operative Diagnosis: L4-5 spondylolisthesis, stenosis with neurogenic claudication Post-Operative Diagnosis: Same Surgery/Procedure Performed: L4-5 posterior spine instrumented fusion implementation technician: Yes Fast Brim Pouncer: Didi Gottlieb Tasks completed by rn first assistant: Closing, Removing tissue, Implanting device and Retracting Type of Anesthesia: General RN Documented Start/Stop Times: Operation Date: 03/01/25 11:00 Case Time Into Pre-Op 03/01/25 09:06 Out of Pre-Op 03/01/25 13:16 Anesthesia Start 03/01/25 13:25 Into Room 03/01/25 13:25 Procedure Start 03/01/25 13:54 Procedure End 03/01/25 16:23 Procedure Start Time: 13:54 Procedure Stop Time: 16:23 Select all DRAINS/GRAFTS/IMPLANTS that apply: Graft Graft details: Allograft cancellous bone chips and Implanted device Implanted device details: DePuy [place] prime pedicle screw instrumentation Estimated Blood Loss: 50 cc Specimen collected: No Description of surgery: Preoperative diagnosis: L4-5 spondylolisthesis, stenosis with neurogenic claudication Postoperative diagnosis: Same Name of procedures: L4-5 posterior percutaneous pedicle screw instrumented fusion, prone: ? L4-5 posterior spinal fusion 79548 ? L4-5 posterior pedicle screw instrumentation [id number] ? Allograft cancellous chips [id number] Attending Surgeon: Dr. Dannie Bahena Estimated blood loss: 50 mL (total for entire case) Anesthesia: General Complications: None Description of procedure: After the anterior procedure was complete, the patient was then turned supine. The patient was then transferred to Jamie table in prone position. Back was prepped and draped in usual fashion. C-arm AP view was then taken. C-arm was positioned in a way that L4 was centralized and superior endplate of was parallel to the beam. Spinous process was centered between the pedicles. Midline was marked with skin marker and lateral borders of the pedicles were also marked. Skin marker was also utilized to suraj transversely across the middle of the pedicles at L4. 2 vertical paramedian incisions of 1 inch were placed. The fascia was incised vertically. Finger dissection was utilized to palpate the transverse process and facet joint. Viper Prime screws with towers were inserted and docked onto the transverse processes. This was then slowly moved medially to reach the superior articular process of L4. This was then confirmed on C-arm and then a mallet was utilized to drive the trocar into the pedicle going up to the medial wall of the pedicle on AP view. This was performed both sides. C-arm lateral view confirmed that the tip of the trocar was in the vertebral body, and the screw was advanced into the pedicle and vertebral body. This was repeated similarly at L5 bilaterally. Screw sizes were 7 x 45 mm at L4 and L5 on both sides. 45 mm precontoured titanium 5.5 mm lordotic tran on the right and 40 mm on the left were then passed through the screw extensions and reduced down to the screws with the help of [employer] instrumentation system on both sides. AP and lateral view of the C-arm showed good positioning of the screws and cages. Final tightening with the torque screwdriver was then completed. Carlito was utilized to roughen the facet joint at L4-5 on the right side. Cancellous allograft bone chips mixed with bone marrow aspirate were then placed over this decorticated area. Hemostasis was achieved. Closure was done in layers with 0 Vicryls for the fascia, 2-0 Vicryls for the subcutaneous tissue, and Monocryl for the skin. Dermabond was applied. Dressings were applied covered with Tegaderm. The patient was then turned supine onto a hospital bed. The patient was extubated and taken to PACU in stable condition. The patient tolerated the procedure well and no complications occurred. Depuy [place] cage & Viper Prime minimally invasive pedicle screw instrumentation system was utilized in this case. No dural tear was identified intraoperatively. I was present for the entirety of the case and performed the surgery. Low Pressure Boiler Tender Didi Gottlieb PA-C. My physician blacksmith assistant was a vital part of this case. They were important in appropriate retraction during the case, and protection of soft tissues during the procedure. Their intimate knowledge of the case and my steps aided in safe and expedient completion of the procedure as well as appropriate position of the patient during the surgery. They were also vital in assisting with closure under my direct supervision. Surgical Findings: See operative note Complications Complications: No
--- NOTE | 2025-03-01 16:49 | PCM.POST.ANE ---
Anesthesia: Postop Eval I Current Vital Signs Temperature: 96.2 F Pulse Rate: 80 Blood Pressure: 144/93 Respiratory Rate: 18 Pulse Ox: 98 Oxygen Delivery Method: Room Air Assessment Airway patent: Yes Spontaneous unlabored respirations: Yes nausea: No Vomiting: No Anesthesia Complication: No Fluid Hydration Crystalloid volume administer (ml): 2,000 Total IV fluid infused: 2,000 Progress Note Anesthesia document: Postop Eval 1 completed: Yes
[2025-03-01] MEDS: Lactated Ringers 1,000 ML 15 ML IV (16:57)
--- NOTE | 2025-03-01 17:49 | POSTOPAN2_ITS ---
Anesthesia Postop Eval I Sum Postop Eval Completion status Anesthesia document: Postop Eval 1 completed: Yes Anesthesia Postop Eval I Summary Anesthesia Postop Eval I Summary: Anesthesia Postop Eval I: Assessment Summary Airway patent Yes 03/01/25 16:50 [email or web address] Spontaneous unlabored Yes 03/01/25 16:50 [email or web address] respirations Mental status nausea No 03/01/25 16:50 [email or web address] Vomiting No 03/01/25 16:50 [email or web address] Anesthesia Postop Eval I: Fluid Summary Crystalloid volume administer 2,000 03/01/25 16:50 [email or web address] (ml) Colloids volume administered ( ml) Blood Product volume administered (ml) Total IV fluid infused 2,000 03/01/25 16:50 [email or web address] Anesthesia Postop Eval I: Summary Notes Anesthesia Complication No 03/01/25 16:50 [email or web address] Anesthesia Complication Comment: Post-operative progress note Anesthesia: Postop Eval II Evaluation Mental status: Asleep Pain Level: 1 nausea: No Vomiting: No Complications Anesthesia Complication: No
--- NOTE | 2025-03-01 17:49 | PCM.POSTANE2 ---
Anesthesia Postop Eval I Sum Postop Eval Completion status Anesthesia document: Postop Eval 1 completed: Yes Anesthesia Postop Eval I Summary Anesthesia Postop Eval I Summary: Anesthesia Postop Eval I: Assessment Summary Airway patent Yes 03/01/25 16:50 [email or web address] Spontaneous unlabored Yes 03/01/25 16:50 [email or web address] [email or web address] respirations Mental status nausea No 03/01/25 16:50 [email or web address] [email or web address] Vomiting No 03/01/25 16:50 [email or web address] Anesthesia Postop Eval I: Fluid Summary Crystalloid volume administer 2,000 03/01/25 16:50 [email or web address] (ml) Colloids volume administered ( ml) Blood Product volume administered (ml) Total IV fluid infused 2,000 03/01/25 16:50 [email or web address] Anesthesia Postop Eval I: Summary Notes Anesthesia Complication No 03/01/25 16:50 [email or web address] Anesthesia Complication Comment: Post-operative progress note Anesthesia: Postop Eval II Evaluation Mental status: Asleep Pain Level: 1 nausea: No Vomiting: No Complications Anesthesia Complication: No
--- NOTE | 2025-03-01 19:16 | CON.PCM.HO_ITS ---
Assessment & Plan Assessment/Plan (1) Spinal stenosis at L4-L5 level: PLAN: Plan Patient is a 54-year-old male who presented to [facility] on 03/01/2025 for L4-5 fusion procedure. Medicine consulted postoperatively for medical management. 1. L4-5 spondylolisthesis with stenosis and urgent claudication ? Orthopedic surgery primary. S/p L4-5 oblique lumbar interbody fusion procedure with Dr. Bahena on 03/01. Tolerated procedure well, no intraoperative complications. Follow-up a.m. CBC and BMP. Postoperative management including pain control and DVT prophylaxis per orthopedics. 2. History of gastric ulcer ? Stable. Continue home famotidine. 3. Asthma/seasonal allergies ? Stable on room air, not in acute exacerbation. Continue home montelukast, cetirizine and albuterol inhaler as needed. DVT prophylaxis: Per orthopedics Total clinical time spent by myself addressing the patient's medical issues, reviewing all the data, and collaborating with patient's care team: 35 minutes. HPI Consult Data Date of Consult: 03/01/25 HPI Narrative Reason for Consultation: Postoperative medical management HPI Narrative: PANCHO LI (JACK), is a 54 M who presented to [facility] on 03/01/2025 for an orthopedic procedure. Medicine consulted postoperatively for medical management. Patient had an L4-5 oblique lumbar interbody fusion done with Dr. Bahena today. Tolerated procedure well, no intraoperative complications. I saw the patient at bedside this evening. Patient was mildly fatigued appearing but otherwise laying back comfortably in bed and in no acute distress. He currently denies any low back pain or discomfort. Denies any lower extremity numbness or tingling. Does feel tired but denies any other acute concerns at this time. [facility] Medical History Back pain History of ulceration Gastric reflux Non-smoker Asthma Home Medications ?Medication ?Instructions ?Recorded ?Last Taken ?Type cetirizine 10 mg tablet 10 mg PO DAILY ALLERGY' 01/16 02/06 Unknown History famotidine 40 mg tablet 40 mg PO QHS GERD 02/06/23 U nknown History fexofenadine 180 mg tablet 180 mg PO DAILY ALLERGY 08/11 Unknown History montelukast 10 mg tablet 10 mg PO DAILY ALLERGY 02/23 Unknown History Allergy/AdvReac Type Severity Reaction Status Date / Time No Known Allergies Allergy Verified 03/01/25 09:27 Social History Smoking Status: Never smoker alcohol intake: never ROS Constitutional Constitutional: Reports fatigue; Denies chills, fever(s) or weakness Cardiovascular Cardiovascular: Denies chest pain Respiratory/Chest Respiratory/Chest: Denies shortness of breath at rest Gastrointestinal Gastrointestinal: Denies abdominal pain Musculoskeletal Musculoskeletal: Denies arthralgias or myalgias Neurologic Neurologic: Denies dizziness or headache(s) Physical Exam Const alert, oriented x3, no apparent distress and average body habitus General Appearance: cooperative and comfortable HEENT normocephalic, head/scalp atraumatic, hearing grossly normal bilaterally, nasal mucous membranes and turbinates normal and moist oral mucous membranes Eyes PERRL, EOMs intact bilaterally and conjunctivae normal Neck full ROM Chest inspection of chest normal Resp normal respiratory effort, normal air movement, no use of accessory muscles and clear to auscultation bilaterally Cardio regular rate, regular rhythm, no murmurs and peripheral pulses 2+ throughout GI normal to inspection, nondistended, normoactive bowel sounds, soft to palpation, non-tender and non-distended Back/Spine Back/Spine Narrative: Low back with bandage in place. Minimal pain to palpation. Did not attempt any range of motion. Extremity normal to inspection and no pedal edema Skin no rashes or lesions noted Psych mental status grossly normal Lab / Micro Data 02/24/25 06:49 02/24/25 06:49 Labs: Laboratory Results - last 24 hr 03/01/25 09:35: POC Glucose 65 L Charges/Coding Visit Charges Inpatient E&M: 47749 Subs Hosp L2
[2025-03-01] MEDS: Senna/Docusate Sodium 1 Tablet 2 TABLET PO (22:10)
[2025-03-01] MEDS: Methocarbamol 500 MG Tablet 1000 MG PO (22:11)
[2025-03-01] MEDS: 0.9% Saline Lock 10 ML Syringe IV (22:12)
[2025-03-02] VITALS (8 sets, daily range): BP systolic 115–157; BP diastolic 71–99; PULSE 65–87; RESP 16–18; TEMP 36.3–37.1; O2SAT 97–99
[2025-03-02] MEDS: Ensure Surgery 237 ML LIQUID PO
[2025-03-02] MEDS: Tamsulosin HCl 0.4 MG Capsule PO ×2 (00:57→09:56)
[2025-03-02 05:10] LABS: Hematocrit 41.2 % (40-54); Hemoglobin 13.4 g/dL (13.0-16.5); Mean Corp Hgb Conc 32.5 g/dL (32-36); Mean Corpuscular Hgb 25.1 pg (27.0-32.0); Mean Corpuscular Volume 77.2 fL (80-94); Mean Platelet Vol. 9.7 fl (6.2-12.0); Platelet Count 312 K/mm3 (150-450); RBC Distribution Width CV 13.5 % (11.6-14.6); RBC Distribution Width SD 37.4 fl (35.1-43.9); Red Blood Count 5.34 M/mm3 (4.6-6.2); White Blood Count 13.3 K/mm3 (4.4-11.0)
[2025-03-02 05:41] LABS: Anion Gap 13 (5-15); BUN 18 mg/dL (4-19); BUN/Creat Ratio 16.5 RATIO (10-20); Carbon Dioxide 19.8 mmol/L (21.0-32.0); Chloride 104 mmol/L (98-108); Creatinine, Serum 1.08 mg/dL (0.70-1.20); EST Glomerular Filtration Rate 82 (>60); Estimated Creatinine Clearance 68.81 ml/min (50-250); Glucose 147 mg/dL (70-99); Potassium 4.4 mmol/L (3.3-5.1); Sodium Level 137 mmol/L (133-145)
[2025-03-02] MEDS: Acetaminophen 500 MG Tablet 1000 MG PO ×3 (06:10→20:46)
[2025-03-02] MEDS: Cefazolin 2 GM in Syringe 10 ML IV (06:10)
[2025-03-02] MEDS: 0.9% Saline Lock 10 ML Syringe IV ×2 (06:11→20:50)
--- NOTE | 2025-03-02 07:00 | RAD_ITS ---
PROCEDURE: LUMBAR SPINE 2 OR 3 VIEWS 03/02/2025 REASON FOR EXAM: S/P LUMBAR FUSION TECHNIQUE: 2 view(s) of the lumbar spine FINDINGS: Status post L4-5 posterior fusion with intervertebral disc spacer and left lateral anchor screw appears intact and anatomic. No fracture or malalignment. RAD/Lumbar Spine 2 or 3 Views IMPRESSION: Status post L4-5 posterior fusion with intervertebral disc spacer and left late ral anchor screw appears intact and anatomic. No fracture or malalignment. Reading Location: [id number]
[2025-03-02] MEDS: oxyCODONE 5 MG Tablet PO ×2 (08:28→16:40)
[2025-03-02] MEDS: Famotidine 20 MG Tablet 40 MG PO (08:29)
[2025-03-02] MEDS: Methocarbamol 500 MG Tablet 1000 MG PO ×3 (08:29→20:46)
[2025-03-02] MEDS: Loratadine 10 MG Tablet PO (08:29)
[2025-03-02] MEDS: Meloxicam 15 MG Tablet PO (08:29)
[2025-03-02] MEDS: Senna/Docusate Sodium 1 Tablet 2 TABLET PO ×2 (08:30→20:45)
[2025-03-02] MEDS: Montelukast 10 MG Tablet PO (08:31)
--- NOTE | 2025-03-02 11:24 | PN.ORTHO_ITS ---
Subjective Subjective Patient is postop day 1 L4-5 lumbar fusion. Patient is doing well postoperatively with his pain well-managed. Patient says that he has been up and walking and has walked with therapy who is cleared him for discharge. The patient has been straight cathed twice and has not yet voided on his own. Patient has not yet passed gas and so is still on a clear liquid diet until so. Dulcolax x 1 ordered. Discussed that drinking water and walking throughout the day will help the patient to pass gas. Seen with Dr. Bahena. Objective Data Objective Data Vital Signs: Vital Signs Temp Pulse Resp BP Pulse Ox O2 Del Method O2 Flow Rate 97.4 F L 87 16 115/79 97 Room Air 3 03/02/25 07:45 03/02/25 07:50 03/02/25 07:50 03/02/25 07:45 03/02/25 07:50 03/02/25 08:05 03/02/25 03:56 Oxygen Flow Rate (L/min) 3 Oxygen Delivery Method Room Air Weight: 143 lb 8.335 oz Body Mass Index (BMI) 23.8 Intake & Output: Intake and Output for Last 24 Hours 02/28/25 03/01/25 03/02/25 23:59 23:59 23:59 Intake Total 3362 / 3412 120 / 120 Output Total 100 / 100 1770 / 1770 Balance 3262 / 3312 -1650 / -1650 Lab / Micro Data 03/02/25 04:05 03/02/25 04:05 Labs: Laboratory Results - last 24 hr 03/02/25 04:05: WBC 13.3 H, RBC 5.34, Hgb 13.4, Hct 41.2, MCV 77.2 L, MCH 25.1 L , MCHC 32.5, RDW Std Deviation 37.4, RDW Coeff of Bella 13.5, Plt Count 312, MPV 9.7, Sodium 137, Potassium 4.4, Chloride 104, Carbon Dioxide 19.8 L, Anion Gap 13, BUN 18, Creatinine 1.08, Estim Creat Clear Calc 68.81, Est GFR (MDRD) Non-Af 82, BUN/Creatinine Ratio 16.5, Glucose 147 H, Calcium 9.0 Micro: Microbiology 02/24/25 06:49 Swab (Method) Nasal Screen MRSA/MSSA - Final Radiography Diagnostic Testing: Radiology Impression Lumbar Spine X-Ray 03/01/25 10:00 IMPRESSION: Intraoperative fluoroscopy for L4-5 intervertebral disc placement and posterior fusion as above. Reading Location: [facility] Lumbar Spine X-Ray 03/02/25 07:00 IMPRESSION: Status post L4-5 posterior fusion with intervertebral disc spacer and left lateral anchor screw appears intact and anatomic. No fracture or malalignment. Reading Location: [facility] Physical Exam Narrative Neurological examination of the lower extremity shows 5X5 power. Normal sensation across all dermatomes. Physical examination of the back and belly shows Tegaderm and gauze CDI. Const alert, oriented x3 and no apparent distress Assessment & Plan Assessment/Plan (1) Status post lumbar spinal fusion: PLAN: Plan Patient is postop day 1 L4-5 fusion. Obtained and reviewed x-rays today which show hardware and bone graft in good position. Patient has been cleared by PT/OT. Continue clear liquid diet until the patient passes flatus. Dulcolax x 1 ordered. If patient does not yet void or pass gas today he will need to stay a second day. Patient has not required any pain medications. Home-going meds will include tramadol, acetaminophen, meloxicam, methocarbamol, senna. OARRS reviewed. Reviewed restrictions of no bending, lifting, twisting until 3 months postop. Reviewed and educated on the proper use of the incentive spirometer. Patient will follow-up in the clinic in 2 weeks. Patient is in agreement. This document has been transcribed using [employer] dictation software. There may be incorrect words, spelling, and punctuation.
--- NOTE | 2025-03-02 12:15 | CASEMGMT ---
GRANT ELLIS Assessment: Face to Face with pt for initial transition planning/care coordination assessment. GRANT ELLIS introduced self and role at [facility], pt voices understanding and consents to assessment. Pt is A&O x4 and answers all questions appropriately at this time. Pt sitting up in chair in no distress. Care providers, pharmacy, and demographics verified/updated. Admitting Dx: 360 lumbar spine L4-5 Strata Score: 1 PCP:Pt states his PCP is in [place], cannot recall name. Specialists:rita Bahena Preferred Pharmacy: [facility] [place] Insurance: MMO Prescription Benefit: yes LNOK: David James, Living Arrangements: Pt lives with and 2 children in a single story home with 1 step to enter. Pt reports prior to surgery, he was I in ADL/IADLs and was working. Pt denies concerns at home. Transportation: Pt drives self and denies concerns with transportation. Pt will transport him until he is able to drive again. DME:None HHC/SNF: Denies hx of Pt states no concerns with going home at time of dc. Discussed the use of FWW. Pt denies need for this as he states his carpet is too thick at home. Pt states his took vacation time for a week to be home with him and can assist. Pt aware should he change his mind once home to notify Dr. Bahena. Pt states he has one that can be available to him should he need it. Pt states he no longer has a job due to his surgery. Pt does seem to be upset about this. Pt states no further concerns/needs. CM to follow. Advised pt to ask CM if any further questions/concerns/needs arise, voices understanding. Pt Goal: Home Plan: Home Masood BURNS CM
--- NOTE | 2025-03-02 12:47 | PCM.PN.BLA ---
Progress Note Doing well, his white count is reactive to his surgery. Had to be straight cathed twice so once he is able to urinate and have bowel function he should be able to go from our perspective. Will sign off, please call with questions
--- NOTE | 2025-03-02 16:18 | NURSING ---
All documentation by nursing home physician Arlyn Adame reviewed by nursing program manager Tatyana CEBALLOS, RN.
[2025-03-03] VITALS: BP 118/75; PULSE 87; RESP 16; TEMP 36.7; O2SAT 95
[2025-03-03 04:00] VITALS: BP 126/79; PULSE 94; RESP 16; TEMP 37.1; O2SAT 95
[2025-03-03] MEDS: oxyCODONE 5 MG Tablet PO (06:10)
[2025-03-03] MEDS: Acetaminophen 500 MG Tablet 1000 MG PO (06:10)
[2025-03-03 06:45] VITALS: O2SAT 96
[2025-03-03 07:48] VITALS: BP 128/83; PULSE 93; RESP 18; TEMP 37.2; O2SAT 94
[2025-03-03] MEDS: Loratadine 10 MG Tablet PO (07:55)
[2025-03-03] MEDS: Senna/Docusate Sodium 1 Tablet 2 TABLET PO (07:55)
[2025-03-03] MEDS: Famotidine 20 MG Tablet 40 MG PO (07:55)
[2025-03-03] MEDS: Methocarbamol 500 MG Tablet 1000 MG PO (07:55)
[2025-03-03] MEDS: Montelukast 10 MG Tablet PO (07:56)
[2025-03-03] MEDS: Meloxicam 15 MG Tablet PO (07:56)
--- NOTE | 2025-03-03 10:33 | CASEMGMT ---
Addendum entered by Yoana Fuentes 03/03/25 11:59: 1045- Pt confirms pt safe to return home without walker. Original Note: Spoke with PT to confirm pt is safe to return home without walker. PT plans to go see pt to confirm this.
--- NOTE | 2025-03-03 14:03 | PHA.DC.MC.R ---
Pharmacy [facility] has performed discharge medication reconciliation and counseling for this patient. The patient's discharge medication list was reviewed for discrepancies and discrepancies were resolved. The patient was counseled on the following discharge medications and changes in medications for homegoing were reviewed. 1. TYLENOL 2. ROBAXIN 3. MOBIC 4. SENNA-S 5. TRAMADOL The Reason for Use, instructions for use, and potential side effects were reviewed for all new medications. The patient's questions regarding all of their medications were answered. The patient demonstrated some understanding but would benefit from further education and reinforcement. The patient was counselled by Mukund Castro PharmD Candidate Medications at Discharge Home Medications cetirizine 10 mg tablet 10 mg PO DAILY ALLERGY' 02/06/23 famotidine 40 mg tablet 40 mg PO QHS GERD 02/06/23 fexofenadine 180 mg tablet 180 mg PO DAILY ALLERGY 02/23/25 montelukast 10 mg tablet 10 mg PO DAILY ALLERGY 02/23/25 acetaminophen 500 mg tablet 500 mg PO Q6H #30 tabs 03/02/25 meloxicam 15 mg tablet 15 mg PO DAILY #30 tabs 03/02/25 methocarbamol 500 mg tablet 750 mg (1.5 x 500 mg) PO TID PRN pain/spasms #60 tabs 03/02/25 sennosides 8.6 mg-docusate sodium 50 mg tablet (Stimulant Laxative Plus) 2 tab PO BID PRN constipation #30 tabs 03/02/25 tamsulosin 0.4 mg capsule 0.4 mg PO BID BPH 03/02/25 tramadol 50 mg tablet 50 mg PO Q8H PRN pain 2 weeks #42 tabs 03/03/25
--- NOTE | 2025-03-03 15:56 | PCM.PN.ORT ---
Subjective Subjective Patient is postop day 2 L4-5 lumbar fusion. Patient says that he has noticed some low back pain. Patient has been walking with physical therapy who is cleared him for home discharge. The patient has passed gas today and has tolerated a solid meal, ready for discharge. The patient does mention that he continues to have some urinary issues however patient does see Dr. Styles and takes Flomax, ready for discharge from hospitalist standpoint. Objective Data Objective Data Vital Signs: Vital Signs Temp Pulse Resp BP Pulse Ox O2 Del Method O2 Flow Rate 98.9 F 93 18 128/83 H 94 Room Air 3 03/03/25 07:48 03/03/25 07:48 03/03/25 07:48 03/03/25 07:48 03/03/25 07:48 03/03/25 07:48 03/02/25 03:56 Oxygen Flow Rate (L/min) 3 Oxygen Delivery Method Room Air Weight: 143 lb 8.335 oz Body Mass Index (BMI) 23.8 Intake & Output: Intake and Output for Last 24 Hours 03/01/25 03/02/25 03/03/25 23:59 23:59 23:59 Intake Total 3362 / 3412 1870 / 1870 450 / 450 Output Total 100 / 100 3320 / 3320 Balance 3262 / 3312 -1450 / -1450 450 / 450 Lab / Micro Data 03/02/25 04:05 03/02/25 04:05 Micro: Microbiology 02/24/25 06:49 Swab (Method) Nasal Screen MRSA/MSSA - Final Physical Exam Narrative Neurological examination of the lower extremity shows 5X5 power. Normal sensation across all dermatomes. Physical examination of the back and belly shows Tegaderm and gauze CDI. Const alert, oriented x3 and no apparent distress Assessment & Plan Assessment/Plan (1) Status post lumbar spinal fusion: PLAN: Plan Patient is postop day 1 L4-5 fusion. Obtained and reviewed x-rays today which show hardware and bone graft in good position. Patient has been cleared by PT/OT. Patient has passed gas and has tolerated a solid meal. Patient with a history of BPH, sees Dr. Styles, takes Flomax. Hospitalist has also cleared for discharge. Patient has not required any pain medications. Home-going meds will include tramadol, acetaminophen, meloxicam, methocarbamol, senna. OARRS reviewed. Reviewed restrictions of no bending, lifting, twisting until 3 months postop. Reviewed and educated on the proper use of the incentive spirometer. Patient will follow-up in the clinic in 2 weeks. Patient is in agreement. This document has been transcribed using [employer] dictation software. There may be incorrect words, spelling, and punctuation.
== END 2025-03-03 11:35 | disposition home or self-care (01) | DRG 402 ==
LOC: MS3 03-02 07:24
PROVIDERS: Anesthesiology; Student in an Organized Health Care Education/Training Program; Admitting Provider Orthopaedic Surgery Orthopaedic Surgery of the Spine; Referring Provider Orthopaedic Surgery Orthopaedic Surgery of the Spine; Visit Provider Orthopaedic Surgery Orthopaedic Surgery of the Spine
PROC: 0SG00A0 Fusion of Lumbar Vertebral Joint with Interbody Fusion Device, Anterior Approach, Anterior Column, Open Approach (ICD-10-PCS; principal; 2025-03-01 10:30)
DX: M43.16 Spondylolisthesis, lumbar region (principal); J45.998 Other asthma; M48.062 Spinal stenosis, lumbar region with neurogenic claudication; K21.9 Gastro-esophageal reflux disease without esophagitis; Z79.51 Long term (current) use of inhaled steroids; Z79.899 Other long term (current) drug therapy
CPT/HCPCS: 36415; 72100; 76000; 80048; 82962; 83735; 85025; 85027; 86703; 86706; 86708; 86803; 86850; 86900; 86901; 87081; 93005; 94640; 94668; 97110; 97116; 97162; 97530; C1713; A4216; J2405; J3475

== ENCOUNTER 2025-07-15 11:01 | Emergency (ER) | payer OTHER, SELFPAY ==
[2025-07-15 11:01] VITALS: BP 146/90; PULSE 80; RESP 14; TEMP 36.2; O2SAT 99; BMI 22.5
--- NOTE | 2025-07-15 11:21 | EDS_ITS ---
HPI History of Present Illness Chief Complaint: Asthma Informant: patient Onset/Context/Timing Onset: Days (2) Context: gradual Timing: Continuous Quality: Positive for Wheezing Worsened by: Nothing Relieved by: Nothing Associated Symptoms cough and white sputum; Negative for rhinorrhea, post nasal drip, ear pain, fever, sore throat, chills, sweats, clear sputum, yellow sputum or green sputum Chest Pain: Positive for None Narrative Narrative: Patient presents with asthma exacerbation that has been getting worse over the past 2 days. Patient states he used his inhaler with no improvement. Patient states he hears himself wheezing. Patient states nothing makes it worse and nothing makes it better. Patient admits to a cough with some white sputum. Patient denies any fevers or chills. Patient denies any chest pain. Patient denies any sore throat or rhinorrhea. Patient states he is on Singulair but this has not been helping. PE Risk Factors: Negative for Cancer, OCP + Smoking + > 35, Prior DVT or PE, Recent immobilization, Recent surgery or Recent travel [facility] Medical History Left inguinal hernia Back pain History of ulceration Gastric reflux Non-smoker Asthma Home Medications ?Medication ?Instructions ?Recorded ?Last Taken ?Type sennosides 8.6 mg-docusate sodium 2 tab PO BID PRN con stipation #30 03/02/25 Unknown Rx 50 mg tablet (Stimulant Laxative tabs Plus) tamsulosin 0.4 mg capsule 0.4 mg PO BID BPH 03/02/25 U nknown History albuterol sulfate 90 mcg/actuation 1 - 2 puff inhalati on Q4H PRN PRN 07/15/25 Unknown Rx aerosol inhaler (Ventolin HFA) Wheezing ##1 Allergy/AdvReac Type Severity Reaction Status Date / Time No Known Allergies Allergy Verified 07/15/25 11:02 Surgical History S/P cystoscopy Previous back surgery Social History Smoking Status: Never smoker alcohol intake: never ROS ROS ED Constitutional Constitutional ED: Denies chills or fever(s) Eyes Eyes: Denies blurry vision or change in vision ENT ENT ED: Denies rhinorrhea or sore throat Cardiovascular Cardiovascular: Denies chest pain or palpitations Respiratory/Chest Respiratory/Chest: Reports cough and dyspnea Gastrointestinal Gastrointestinal: Denies nausea or vomiting Genitourinary Genitourinary ED: Denies dysuria or hematuria Musculoskeletal Musculoskeletal: Denies back pain or neck pain Integumentary Denies abscess or rash Neurologic Neurologic: Denies headache(s) or weakness Allergic/Immunologic Allergic/Immunologic ED: Denies mouth swelling or urticaria EXAM Physical Exam Const Vital Signs: 07/15/25 11:01 07/15/25 11:45 07/15/25 12:13 Temperature 97.1 F L Temperature Source Temporal Pulse Rate 80 80 Respiratory Rate 14 16 Respiratory Effort Normal Respiratory Depth Normal Respiratory Pattern Normal Normal Blood Pressure 146/90 H Blood Pressure Mean 108 Pulse Ox 99 Oxygen Delivery Method Room Air Room Air Positive well nourished and well developed Constitutional Narrative: BMI is 22.5. General Appearance ED: well developed and NAD HEENT Reports moist mucous membranes atraumatic Neck supple and no JVD Resp normal respiratory effort Auscultation: wheezes expiratory wheezes and scattered wheezes Cardio regular rate and regular rhythm GI non-tender and non-distended Palpation: soft Neuro oriented x3, CN's II-XII intact bilaterally and no sensory deficits noted Russell Coma Scale: document GCS findings Spontaneous Obeys Commands Oriented 15 Sensorium / Orientation: alert Speech: speech normal Motor Exam: strength 5/5 throughout Psych mental status grossly normal MDM MDM MDM Narrative Medical decision making narrative: Differential diagnosis includes asthma exacerbation, bronchitis, and viral illness. Chest x-ray will be obtained to assess for bronchitis. COVID-19, influenza, and RSV PCR will be obtained to assess for viral illness. Lab Data Lab results narrative: COVID-19 PCR was reviewed and was negative. Influenza PCR was reviewed and was negative for influenza A and influenza B. RSV PCR was reviewed and was negative. Radiography Chest X-Ray - ED: 2 View, Read by ED Physician, Read by Radiologist and No Acute Disease Diagnostic Testing: Clinical Impression(s) from Imaging Studies Chest X-Ray 07/15/25 11:25 IMPRESSION: Mild right hemidiaphragm elevation/eventration is seen. Lungs are hypoinflated, but no acute pneumonic process is evident. No pleural effusion or pneumothorax is seen. The cardiomediastinal silhouette is stable, without evidence of cardiomegaly. No acute osseous change is seen. Reading Location: [place] [id number] PA and lateral chest x-ray was obtained. There are 2 views. On my independent interpretation, lung arias are clear. There is normal cardiac silhouette. Bony thorax is normal. There is no acute process noted. Radiologist also interpreted the x-ray and agrees. Treatment and Re-Evaluation :: Patient was given a DuoNeb aerosol here. Patient was feeling better on reevaluation. Lungs were clear to auscultation on reevaluation. Patient states he only has a Symbicort inhaler. Patient states he does not have a rescue inhaler. The patient was given a prescription for an albuterol inhaler. Patient was instructed to follow-up with his primary care physician in 5 to 7 days. Patient was instructed to return if worse in any way. Patient understood and was agreeable with the plan. All questions were answered. Discharge Plan Triage Chief Complaint: Asthma ED Provider: Sony Mcfadden Dx/Rx/DC Orders Clinical Impression: Asthma exacerbation, Acute dyspnea Instructions: ED Asthma, Acute (Adult) Prescriptions: New albuterol sulfate [Ventolin HFA] 90 mcg/actuation HFA aerosol inhaler 1 - 2 puff inhalation Q4H PRN PRN (Reason: Wheezing) Qty: 1 0RF No Action tamsulosin 0.4 mg capsule 0.4 mg PO BID sennosides-docusate sodium [Stimulant Laxative Plus] 8.6-50 mg Tablet 2 tab PO BID PRN (Reason: constipation) Qty: 30 0RF Primary Care Provider: Care Physician,No Primary Referrals: [facility] [Outside] - 5-7 Days Care Physician,No Primary [Primary Care Provider] - Print Language: Kinyarwanda Disposition Disposition: Home, Self Care
--- NOTE | 2025-07-15 11:25 | RAD_ITS ---
PROCEDURE: CHEST PA AND LATERAL 07/15/2025 REASON FOR EXAM: WHEEZING TECHNIQUE: Three-view CHEST PA AND LATERAL COMPARISON: PA and lateral chest 08/13/2024. RAD/Chest PA and Lateral IMPRESSION: Mild right hemidiaphragm elevation/eventration is seen. Lungs are hypoinflated, but no acute pneumonic process is evident. No pleural effusion or pneumothorax is seen. The cardiomediastinal silhouette is stable, without evidence of cardiomegaly. No acute osseous change is seen. Reading Location: [place] [id number]
[2025-07-15 11:45] VITALS: O2SAT 98
[2025-07-15 12:13] VITALS: PULSE 80; RESP 16
[2025-07-15 13:32] VITALS: BP 138/74; PULSE 81; RESP 16; TEMP 36.7; O2SAT 99
--- NOTE | 2025-07-15 17:38 | CM.ED ---
Social Work Reason for visit: No PCP Patient verified that he does not currently have a PCP, [facility] provider list given. Patient accepting of same. No further needs identified at this time. Omayra Copeland, COMPUTER SYSTEMS AUDITOR, DIRECTOR TECHNICAL
== END 2025-07-15 13:33 | disposition home or self-care (01) ==
PROVIDERS: Emergency Provider Emergency Medicine; Visit Provider Emergency Medicine
DX: J45.901 Unspecified asthma with (acute) exacerbation (principal); R06.00 Dyspnea, unspecified; Z79.51 Long term (current) use of inhaled steroids
CPT/HCPCS: 71046; 87631; 94640; 99282